=== PATIENT | male | born 1970 | race Caucasian/White ===

== ENCOUNTER 2018-07-19 23:35 | Emergency (ER) | payer OTHER ==
[~2018-07-19] VITALS: Ht 180.3 cm; Wt 112.5 kg
[~2018-07-19 23:35] MED LIST: ALTACE5 MG PO; AVAPRO300 MG PO; METFORMIN HCL500 MG PO
[2018-07-20] MEDS ORDERED: ZYNCOF 20-400120 ML PO ×2 (04:53→04:54)
[2018-07-20] MEDS ORDERED: OSEL75CA PO ×2 (04:54)
== END 2018-07-20 04:59 ==
LOC: ER 23:35
DX: J20.8 Acute bronchitis due to other specified organisms (principal); J09.X2 Influenza due to identified novel influenza A virus with other respiratory manifestations; E11.9 Type 2 diabetes mellitus without complications

== ENCOUNTER 2019-09-02 09:48 | Outpatient (CLI) | payer OTHER ==
[~2019-09-02 09:48] MED LIST changes: +OSEL75CA PO; +ZYNCOF 20-400120 ML PO
== END 2019-09-02 09:50 | disposition home or self-care (01) ==
LOC: RX STUDY 09:48
DX: R13.19 Other dysphagia (principal)